=== PATIENT | female | born 1980 | race Caucasian/White ===

== ENCOUNTER 2016-09-23 16:22 | Emergency (ER) | payer OTHER | END 2016-09-23 17:33 | disposition home or self-care (01) | LOC: ER1 16:22 | DX: S62.396A Other fracture of fifth metacarpal bone, right hand, initial encounter for closed fracture (principal); F17.210 Nicotine dependence, cigarettes, uncomplicated; Y93.72 Activity, wrestling; Y92.009 Unspecified place in unspecified non-institutional (private) residence as the place of occurrence of the external cause; Y99.8 Other external cause status | CPT/HCPCS: 29125; 73130; 99283 ==